=== PATIENT | male | born 1975 | race Caucasian/White ===

== ENCOUNTER 2021-04-17 15:49 | Inpatient (IN) | payer OTHER ==
[2021-04-17 19:17] VITALS: BMI 18.3
[2021-04-17] MEDS ORDERED: P-EPHED 60MG/TRIPROLIDI 2.5MG TABLET PO PRN (21:49)
[2021-04-17] MEDS ORDERED: IBUPROFEN 400 MG TABLET (FP) PO PRN (21:49)
[2021-04-17] MEDS ORDERED: LOPERAMIDE HCL 2 MG CAPSULE PO PRN (21:49)
[2021-04-17] MEDS ORDERED: MAG HYDROX/AL HYDROX/SIMETH 30 ML UNIT-DOSE CUP PO PRN (21:49)
[2021-04-17] MEDS ORDERED: MAGNESIUM CITRATE 300 ML BOTTLE PO PRN (21:49)
[2021-04-17] MEDS ORDERED: guaiFENesin 200 MG/10 ML 10 ML UNIT-DOSE CUPS PO PRN (21:49)
[2021-04-17] MEDS ORDERED: MENTHOL/PHENOL 1 EACH UD MM PRN (21:49)
[2021-04-17] MEDS ORDERED: MAGNESIUM HYDROX 2400MG/30ML ORAL SUSPENSION 30 ML CUP PO PRN (21:49)
[2021-04-18] MEDS: THIAMINE HCL 100 MG TABLET (FP) PO SCH ×2 (02:35→23:20)
[2021-04-18] MEDS: ASPIRIN 81 MG CHEWABLE TABLETS PO SCH (11:21)
[2021-04-18] MEDS: FERROUS SO4 325 MG TABLET (FP) PO SCH (11:21)
[2021-04-18] MEDS: levETIRAcetam 500 MG TABLET (FP) PO SCH ×2 (11:21→23:20)
[2021-04-18] MEDS: PRENATAL VITAMINS W/ FOLIC ACID TABLET (FP) PO SCH (11:21)
[2021-04-18] MEDS ORDERED: cloNIDine HCL 0.1 MG TABLET PO PRN (11:32)
[2021-04-18] MEDS ORDERED: methaDONE HCL 10 MG TABLET (FOR DETOX USE ONLY) PO ONE (11:45)
[2021-04-18] MEDS: CARVEDILOL 3.125 MG TABLET (FP) PO SCH ×2 (12:12→23:21)
[2021-04-18] MEDS: hydrALAZINE HCL 10 MG TABLET PO SCH ×2 (14:58→23:21)
[2021-04-18] MEDS: ISOSORBIDE DINITRATE 10 MG TABLET PO SCH ×2 (15:00→23:21)
[2021-04-18] MEDS: ATORVASTATIN CA 40 MG TABLET (FP) PO SCH (23:20)
[2021-04-18] MEDS: MELATONIN 5 MG TABLETS PO PRN (23:20)
[2021-04-19] MEDS: hydrALAZINE HCL 10 MG TABLET PO SCH ×3 (07:02→23:20)
[2021-04-19] MEDS: ISOSORBIDE DINITRATE 10 MG TABLET PO SCH ×3 (07:02→23:20)
[2021-04-19] MEDS ORDERED: methaDONE HCL 10 MG TABLET (FOR DETOX USE ONLY) ONE (09:21)
[2021-04-19] MEDS: FERROUS SO4 325 MG TABLET (FP) PO SCH (09:48)
[2021-04-19] MEDS: ASPIRIN 81 MG CHEWABLE TABLETS PO SCH (09:48)
[2021-04-19] MEDS: CARVEDILOL 3.125 MG TABLET (FP) PO SCH ×2 (09:48→23:20)
[2021-04-19] MEDS: levETIRAcetam 500 MG TABLET (FP) PO SCH ×2 (09:48→23:19)
[2021-04-19] MEDS: PRENATAL VITAMINS W/ FOLIC ACID TABLET (FP) PO SCH (10:29)
[2021-04-19 11:10] LABS: MCHC 31.7 g/dl (32.0-35.9); PLATELET COUNT 280 10^3/uL (134-434)
[2021-04-19 11:14] LABS: HEMATOCRIT 36.3 % (35.4-49); HEMOGLOBIN 11.5 GM/dL (11.7-16.9); MCH 26.9 pg (25.7-33.7); MEAN CELL VOLUME 84.8 fl (80-96); MEAN PLT VOLUME 9.8 fl (7.5-11.1); RBC 4.28 M/mm3 (4.00-5.60); RDW 19.8 % (11.9-15.9); WHITE BLOOD COUNT 6.1 K/mm3 (4.0-10.0)
[2021-04-19 14:18] LABS: BILIRUBIN,TOTAL 0.6 mg/dL (0.2-1); BLOOD UREA NITROGEN 37.3 mg/dL (7-18); CALCIUM 9.9 mg/dL (8.5-10.1); CREATININE 1.3 mg/dL (0.55-1.3); TOT PROT 8.2 g/dl (6.4-8.2)
[2021-04-19] MEDS ORDERED: SODIUM POLYSTYRENE SULFONATE 15 GM/60 ML BOTTLE PO ONE (15:30)
[2021-04-19] MEDS: MELATONIN 5 MG TABLETS PO PRN (23:19)
[2021-04-19] MEDS: THIAMINE HCL 100 MG TABLET (FP) PO SCH (23:19)
[2021-04-19] MEDS: ATORVASTATIN CA 40 MG TABLET (FP) PO SCH (23:19)
[2021-04-20] MEDS: hydrALAZINE HCL 10 MG TABLET PO SCH ×3 (06:18→22:59)
[2021-04-20] MEDS: ISOSORBIDE DINITRATE 10 MG TABLET PO SCH ×3 (06:18→22:59)
[2021-04-20] MEDS ORDERED: methaDONE HCL 10 MG TABLET (FOR DETOX USE ONLY) PO ONE (10:00)
[2021-04-20] MEDS: CARVEDILOL 3.125 MG TABLET (FP) PO SCH ×2 (10:01→22:59)
[2021-04-20] MEDS: levETIRAcetam 500 MG TABLET (FP) PO SCH ×2 (10:02→22:19)
[2021-04-20] MEDS: ASPIRIN 81 MG CHEWABLE TABLETS PO SCH (10:02)
[2021-04-20] MEDS: FERROUS SO4 325 MG TABLET (FP) PO SCH (10:02)
[2021-04-20] MEDS: PRENATAL VITAMINS W/ FOLIC ACID TABLET (FP) PO SCH (10:02)
[2021-04-20 13:56] LABS: BLOOD UREA NITROGEN 26.6 mg/dL (7-18); CALCIUM 9.4 mg/dL (8.5-10.1)
[2021-04-20 13:59] LABS: CREATININE 1.1 mg/dL (0.55-1.3)
[2021-04-20 14:01] LABS: BILIRUBIN,TOTAL 0.7 mg/dL (0.2-1); TOT PROT 8.2 g/dl (6.4-8.2)
[2021-04-20] MEDS ORDERED: SODIUM POLYSTYRENE SULFONATE 15 GM/60 ML BOTTLE PO ONE (14:03)
[2021-04-20] MEDS: THIAMINE HCL 100 MG TABLET (FP) PO SCH (22:19)
[2021-04-20] MEDS: ATORVASTATIN CA 40 MG TABLET (FP) PO SCH (22:19)
[2021-04-20] MEDS: MELATONIN 5 MG TABLETS PO PRN (22:20)
[2021-04-21] MEDS: ISOSORBIDE DINITRATE 10 MG TABLET PO SCH ×3 (06:08→23:14)
[2021-04-21] MEDS: hydrALAZINE HCL 10 MG TABLET PO SCH ×3 (06:08→23:14)
[2021-04-21] MEDS ORDERED: methaDONE HCL 10 MG TABLET (FOR DETOX USE ONLY) ONE (09:31)
[2021-04-21] MEDS: ASPIRIN 81 MG CHEWABLE TABLETS PO SCH (09:51)
[2021-04-21] MEDS: levETIRAcetam 500 MG TABLET (FP) PO SCH ×2 (09:51→22:50)
[2021-04-21] MEDS: FERROUS SO4 325 MG TABLET (FP) PO SCH (09:51)
[2021-04-21] MEDS: CARVEDILOL 3.125 MG TABLET (FP) PO SCH ×2 (09:51→23:14)
[2021-04-21] MEDS: PRENATAL VITAMINS W/ FOLIC ACID TABLET (FP) PO SCH (09:51)
[2021-04-21 12:45] LABS: BLOOD UREA NITROGEN 17.5 mg/dL (7-18); CALCIUM 9.1 mg/dL (8.5-10.1)
[2021-04-21 12:49] LABS: CREATININE 1.1 mg/dL (0.55-1.3)
[2021-04-21] MEDS: THIAMINE HCL 100 MG TABLET (FP) PO SCH (22:50)
[2021-04-21] MEDS: ATORVASTATIN CA 40 MG TABLET (FP) PO SCH (22:50)
[2021-04-21] MEDS: MELATONIN 5 MG TABLETS PO PRN (22:51)
[2021-04-22] MEDS: ISOSORBIDE DINITRATE 10 MG TABLET PO SCH ×3 (06:07→22:28)
[2021-04-22] MEDS: hydrALAZINE HCL 10 MG TABLET PO SCH ×3 (06:07→22:29)
[2021-04-22] MEDS ORDERED: methaDONE HCL 10 MG TABLET (FOR DETOX USE ONLY) PO ONE (10:00)
[2021-04-22] MEDS: FERROUS SO4 325 MG TABLET (FP) PO SCH (10:25)
[2021-04-22] MEDS: CARVEDILOL 3.125 MG TABLET (FP) PO SCH ×2 (10:25→22:30)
[2021-04-22] MEDS: PRENATAL VITAMINS W/ FOLIC ACID TABLET (FP) PO SCH (10:25)
[2021-04-22] MEDS: levETIRAcetam 500 MG TABLET (FP) PO SCH ×2 (10:26→22:28)
[2021-04-22] MEDS: ASPIRIN 81 MG CHEWABLE TABLETS PO SCH (10:27)
[2021-04-22] MEDS: THIAMINE HCL 100 MG TABLET (FP) PO SCH (22:28)
[2021-04-22] MEDS: ATORVASTATIN CA 40 MG TABLET (FP) PO SCH (22:28)
[2021-04-23] MEDS: hydrALAZINE HCL 10 MG TABLET PO SCH (06:09)
[2021-04-23] MEDS: ISOSORBIDE DINITRATE 10 MG TABLET PO SCH (06:09)
[2021-04-23 09:08] VITALS: BP 116/70; PULSE 104; TEMP 97.1
[2021-04-23] MEDS: CARVEDILOL 3.125 MG TABLET (FP) PO SCH (10:28)
[2021-04-23] MEDS: levETIRAcetam 500 MG TABLET (FP) PO SCH (10:28)
[2021-04-23] MEDS: PRENATAL VITAMINS W/ FOLIC ACID TABLET (FP) PO SCH (10:28)
[2021-04-23] MEDS: ASPIRIN 81 MG CHEWABLE TABLETS PO SCH (10:28)
[2021-04-23] MEDS: FERROUS SO4 325 MG TABLET (FP) PO SCH (10:28)
== END 2021-04-23 11:40 | disposition home or self-care (01) | DRG 773 ==
LOC: EDBD → YASAS 15:49 → UNDOADMIN 22:54 → Y3N 22:54
PROVIDERS: ADMIT Allergy & Immunology; ATTEND Allergy & Immunology
PROC: HZ2ZZZZ Detoxification Services for Substance Abuse Treatment (ICD-10-PCS; principal; 2021-04-17)
DX: F11.23 Opioid dependence with withdrawal (principal); E87.5 Hyperkalemia; N28.9 Disorder of kidney and ureter, unspecified; B18.2 Chronic viral hepatitis C; E11.9 Type 2 diabetes mellitus without complications; J45.909 Unspecified asthma, uncomplicated; Z86.59 Personal history of other mental and behavioral disorders; Z86.79 Personal history of other diseases of the circulatory system
CPT/HCPCS: 36415; 80048; 80053; 80177; 85027; 86780; 93005; 93010; C9803; U0003; U0005